=== PATIENT | male | born 1950 | race Caucasian/White ===

== ENCOUNTER 2020-09-07 17:24 | Emergency (ER) | payer MEDICARE ==
[2020-09-07 17:30] VITALS: BP 156/89; PULSE 123; RESP 18; TEMP 98
[2020-09-07] MEDS ORDERED: TAMSULOSIN 0.4 MG CAP.ER.24H PO STA (17:47)
--- NOTE | 2020-09-07 17:53 | ED ---
General Adult HPI - General Chief complaint: Urogenital Stated complaint: Urogenital Time Seen by Provider: 09/07/20 17:36 Source: patient Mode of arrival: ambulatory Limitations: no limitations - History of Present Illness Initial comments: Dictation was produced using [employer] dictation software. please excuse any grammatical, word or spelling errors. Chief Complaint: 69-year-old male presents with urinary retention History of Present Illness: 69-year-old male him and his are visiting from [place]. Daily back to [place] on Wednesday. Patient states that today he had trouble urinating. He has history of prostate disease. He's had months and months of weak urinary stream. He knows he has prostate problems. There is a first time he was unable to urinate. Last urination was 4 hours prior to arrival. The ROS documented in this emergency department record has been reviewed and confirmed by me. Those systems with pertinent positive or negative responses have been documented in the HPI. All other systems are other negative and/or noncontributory. PHYSICAL EXAM: General Impression: Alert and oriented x3, not in acute distress HEENT: Normocephalic atraumatic, extra-ocular movements intact, pupils equal and reactive to light bilaterally, mucous membranes moist. Cardiovascular: Heart regular rate and rhythm Chest: Able to complete full sentences, no retractions, no tachypnea Abdomen: abdomen soft, suprapubic fullness, no organomegaly Musculoskeletal: Pulses present and equal in all extremities, no peripheral edema Motor: no focal deficits noted Neurological: CN II-XII grossly intact, no focal motor or sensory deficits noted Skin: Intact with no visualized rashes Psych: Normal affect and mood ED course: 69-year-old male presents with urinary retention. Bladder scan shows greater than 800 mL of urine. Vital signs upon arrival shows heart rate of 123, rest of vital signs within acceptable limits. Discussed with patient that the best option is to place Clemente catheter. He states that he does not want a Clemente catheter. He is agreeable however to straight catheterization and try with Flomax. He is told that he should return to the emergency department if he doesn't urinate on his own and 4 hours. She gave prescription for Flomax. He does not take any Alpha I blockers or Cialis or Viagra. - Related Data Previous Rx's Medication Instructions Recorded Tamsulosin HCl [Flomax] 0.4 mg PO DAILY #12 capsule 09/07/20 Allergies Allergy/AdvReac Type Severity Reaction Status Date / Time No Known Allergies Allergy Verified 09/07/20 17:30 Review of Systems ROS Statement: Those systems with pertinent positive or pertinent negative responses have been documented in the HPI. ROS Other: All systems not noted in ROS Statement are negative. Past Medical History Past Medical History: Hyperlipidemia, Hypertension History of Any Multi-Drug Resistant Organisms: None Reported Past Surgical History: Tonsillectomy Past Psychological History: No Psychological Hx Reported Smoking Status: Former smoker Past Alcohol Use History: Occasional Past Drug Use History: None Reported General Exam Limitations: no limitations Course Vital Signs 09/07/20 17:26 Temperature 98.0 F Pulse Rate 123 H Respiratory 18 Rate Blood Pressure 156/89 O2 Sat by Pulse 97 Oximetry Disposition Clinical Impression: Urinary retention Disposition: HOME SELF-CARE Condition: Good Instructions (If sedation given, give patient instructions): Enlarged Prostate (BPH) (ED), Urinary Retention in Men (ED) Additional Instructions: Please seek medical attention if you do not urinate in 4 hours. Prescriptions: Tamsulosin HCl [Flomax] 0.4 mg PO DAILY #12 capsule Is patient prescribed a controlled substance at d/c from ED?: No Referrals: Nonstaff,Physician [Primary Care Provider] - 1-2 days
[2020-09-07 18:04] LABS: Appearance,Urine Clear (Clear); Bilirubin,Urine Negative (Negative); Blood,Urine Negative (Negative); Color,Urine Light Yellow; Glucose,Urine (UA) Negative (Negative); Ketones,Urine 1+ (Negative); Leukocyte Esterase,Urine Negative (Negative); Nitrite,Urine Negative (Negative); PH, Urine 5.5 (5.0-8.0); Protein,Urine Negative (Negative); Specific Gravity,Urine 1.009 (1.001-1.035); Urobilinogen,Urine <2.0 mg/dL (<2.0)
== END 2020-09-07 18:00 | disposition home or self-care (01) ==
LOC: EC 17:24
DX: R33.9 Retention of urine, unspecified (principal); Z87.891 Personal history of nicotine dependence; I10 Essential (primary) hypertension
CPT/HCPCS: 51798; 81003; 99283

== ENCOUNTER 2020-09-07 21:39 | Emergency (ER) | payer MEDICARE ==
--- NOTE | 2020-09-07 22:28 | ED ---
Male Urogenital HPI - General Chief complaint: Urogenital Stated complaint: unable to urinate Time Seen by Provider: 09/07/20 22:20 Source: patient, family Mode of arrival: ambulatory Limitations: no limitations - History of Present Illness Initial comments: 69-year-old male with history of enlarged prostate presents emergency with a chief complaint of urinary retention. States he was in emergency department earlier this morning for the same chief complaint. He had a urinary straight catheterization and was able to remove the ear. States he was able to urinate without difficulties for the next 2 hours after discharge. However, now he returns with similar complaints of pressure in the bladder. States he is not able to urinate. He does have increased urinary urgency but denies frequency or dysuria. Denies any penile discharge. Denies any nausea vomiting diarrhea. Denies any back pain chest pain shortness of breath. Denies any fevers or chills. Patient states he is out of state and will be going back to [place] this . They will follow up with a urologist there. - Related Data Previous Rx's Medication Instructions Recorded Tamsulosin HCl [Flomax] 0.4 mg PO DAILY #12 capsule 09/07/20 Allergies Allergy/AdvReac Type Severity Reaction Status Date / Time No Known Allergies Allergy Verified 09/07/20 22:10 Review of Systems ROS Statement: Those systems with pertinent positive or pertinent negative responses have been documented in the HPI. ROS Other: All systems not noted in ROS Statement are negative. Past Medical History Past Medical History: Hyperlipidemia, Hypertension History of Any Multi-Drug Resistant Organisms: None Reported Past Surgical History: Tonsillectomy Past Psychological History: No Psychological Hx Reported Smoking Status: Former smoker Past Alcohol Use History: Occasional Past Drug Use History: None Reported General Exam Limitations: no limitations General appearance: alert, in no apparent distress Head exam: Present: atraumatic, normocephalic, normal inspection Eye exam: Present: normal appearance, PERRL, EOMI Pupils: Present: normal accommodation ENT exam: Present: normal exam, normal oropharynx, mucous membranes moist Neck exam: Present: normal inspection, full ROM. Absent: tenderness, lymphadenopathy Respiratory exam: Present: normal lung sounds bilaterally. Absent: respiratory distress, wheezes, rales, rhonchi, stridor Cardiovascular Exam: Present: regular rate, normal rhythm, normal heart sounds GI/Abdominal exam: Present: soft, tenderness (Tenderness over the bladder). Absent: distended, guarding, rebound, rigid Extremities exam: Present: normal inspection, full ROM, normal capillary refill. Absent: tenderness Back exam: Present: normal inspection, full ROM. Absent: tenderness Neurological exam: Present: alert, oriented X3 Psychiatric exam: Present: normal affect, normal mood Skin exam: Present: warm, dry, intact, normal color Course Vital Signs 09/07/20 09/07/20 22:10 22:49 Temperature 98.7 F Pulse Rate 133 H 120 H Respiratory 16 18 Rate Blood Pressure 137/77 131/74 O2 Sat by Pulse 98 98 Oximetry Medical Decision Making - Medical Decision Making 69-year-old male presents to emergency department with a chief complaint of urinary retention. I reviewed the medical records, he had urinary straight cat heter earlier this morning. However he appears to have achieved urinary retention again. This time a Clemente catheter will be inserted. UA shows +2 ketones and red blood cells. No signs of a UTI. Patient is otherwise well- appearing. Patient will be discharged with an outpatient follow-up. States he wants to see his physician in [place] this . Patient is not from here and is only visiting. Case discussed with - Lab Data Lab Results 09/07/20 Range/Units 23:22 Urine Color Light Yellow Urine Appearance Clear (Clear) Urine pH 5.5 (5.0-8.0) Ur Specific [place] 1.012 (1.001-1.035) Urine Protein Negative (Negative) Urine Glucose (UA) 1+ H (Negative) Urine Ketones 2+ H (Negative) Urine Blood Moderate H (Negative) Urine Nitrite Negative (Negative) Urine Bilirubin Negative (Negative) Urine Urobilinogen <2.0 (<2.0) mg/dL Ur Leukocyte Esterase Negative (Negative) Urine RBC 44 H (0-5) /hpf Urine WBC 1 (0-5) /hpf Ur Squamous Epith Cells 1 (0-4) /hpf Urine Mucus Rare H (None) /hpf Disposition Clinical Impression: Hematuria, Urinary retention Disposition: HOME SELF-CARE Condition: Stable Instructions (If sedation given, give patient instructions): Clemente Catheter Placement and Care (ED), Clemente Catheter Removal (DC) Additional Instructions: Follow-up with urologist. Return to emergency department if symptoms worsen. Is patient prescribed a controlled substance at d/c from ED?: No Referrals: Nonstaff,Physician [Primary Care Provider] - 1-2 days Time of Disposition: 00:09
[2020-09-07 23:00] VITALS: RESP 18
[2020-09-07 23:33] LABS: Appearance,Urine Clear (Clear); Bilirubin,Urine Negative (Negative); Blood,Urine Moderate (Negative); Color,Urine Light Yellow; Glucose,Urine (UA) 1+ (Negative); Leukocyte Esterase,Urine Negative (Negative); Mucus,Urine Rare /hpf; Nitrite,Urine Negative (Negative); PH, Urine 5.5 (5.0-8.0); Protein,Urine Negative (Negative); RBC,Urine 44 /hpf (0-5); Specific Gravity,Urine 1.012 (1.001-1.035); Squamous Epithelial Cell,Urine 1 /hpf (0-4); Urobilinogen,Urine <2.0 mg/dL (<2.0); WBC,Urine 1 /hpf (0-5)
[2020-09-07 23:37] LABS: Ketones,Urine 2+ (Negative)
[2020-09-08 01:04] VITALS: BP 131/75; PULSE 99; TEMP 98.1
== END 2020-09-08 01:25 | disposition home or self-care (01) ==
LOC: EC 21:39
DX: R31.9 Hematuria, unspecified (principal); R33.9 Retention of urine, unspecified; R39.15 Urgency of urination; I10 Essential (primary) hypertension; Z87.891 Personal history of nicotine dependence
CPT/HCPCS: 51702; 81001; 93005; 99283